=== PATIENT | male | born 1940 | race Caucasian/White ===

== ENCOUNTER 2016-11-03 06:23 | Emergency (ER) | payer OTHER, MEDICARE ==
[2016-11-03 06:55] VITALS: RESP 16
--- NOTE | 2016-11-03 07:08 | EDPHY ---
H & P Stated Complaint: L sided abd pain Time Seen by Provider: 11/03/16 07:03 HPI/ROS: CHIEF COMPLAINT: Left-sided abdominal pain. HISTORY OF PRESENT ILLNESS: The patient is a 76-year-old male who presents with left-sided abdominal pain for the last 6 hours. The pain has been worsening slightly since onset and is described as sharp. Lying on his side alleviates the pain and standing up worsens it. The pain intermittently radiates to his left flank and left testicle. He admits associated nausea. Denies vomiting, urinary symptoms, recent cold symptoms. He has a history of right-sided epididymitis and reports this feels similar but his epididymitis did not involve abdominal pain. He has no personal history of kidney stones or diverticulitis but his father did have a kidney stone. REVIEW OF SYSTEMS: Aside from elements discussed in the HPI, a comprehensive 10-point review of systems was reviewed and is negative. PAST MEDICAL HISTORY: Diabetes, hypertension, prostate cancer. SOCIAL HISTORY: Here with . VITAL SIGNS: Reviewed by me GENERAL: Well-developed, well-nourished, resting comfortably in no respiratory distress. HEENT: Atraumatic. Eyes: No icterus, no injection. Mouth: moist mucous membranes. No erythema or lesions. Neck: supple with no adenopathy. LUNGS: Clear to auscultation bilaterally, no wheezes, rhonchi or rales. CARDIAC: Regular rate and rhythm, no rubs, murmurs or gallops. ABDOMEN: Nontender. Soft, nondistended, bowel sounds normal. MALE : Mild left testicle tenderness, no swelling. BACK: Lateral left flank tenderness. No CVA tenderness. EXTREMITIES: No trauma. No edema. Range of motion is normal throughout. NEURO: Alert and oriented, grossly nonfocal. SKIN: Warm and dry, no rash. PSYCHIATRIC: Normal mentation, no agitation. Portions of this note were transcribed by a medical device sales. I personally performed a history, physical exam, medical decision making, and confirmed accuracy of information the transcribed note. Source: Patient Exam Limitations: No limitations - Personal History Current Tetanus Diphtheria and Acellular Pertussis (TDAP): Yes - Medical/Surgical History Hx Asthma: No Hx Chronic Respiratory Disease: No Hx Diabetes: Yes Hx Cardiac Disease: No Hx Renal Disease: No Hx Cirrhosis: No Hx Alcoholism: No Hx HIV/AIDS: No Hx Splenectomy or Spleen Trauma: No Other PMH: DM, HTN, - Social History Smoking Status: Never smoked Constitutional: Initial Vital Signs Temperature (C) 36.6 C 11/03/16 06:54 Heart Rate 66 11/03/16 06:54 Respiratory Rate 16 11/03/16 06:54 Blood Pressure 162/82 H 11/03/16 06:54 O2 Sat (%) 94 11/03/16 06:54 O2 Delivery Mode Room Air O2 (L/minute) 2 Allergies/Adverse Reactions: levofloxacin [From Levaquin] Allergy (Severe, Verified 05/05/13 15:04) JOINT PAIN SEVERE amoxicillin [Amoxicillin] Allergy (Intermediate, Verified 05/05/13 15:04) DIZZY ENVIRONMENTAL Allergy (Severe, Uncoded 05/05/13 15:04) SEVERE NASAL CONGESTION/ITCHY EYES Home Medications: Medication Instructions Recorded Amlodipine Besylate 11/03/16 HCTZ (*) 11/03/16 Tamsulosin HCl [Flomax] 0.4 mg PO DAILY #7 cap 11/03/16 Valsartan 11/03/16 metFORMIN SR 11/03/16 oxyCODONE/APAP 5/325 [Percocet 1 tab PO QID PRN #20 tab 11/03/16 5/325 (*)] Medical Decision Making - Diagnostics Imaging: Study: CT of the abdomen. Results: 1. Mild to moderate left hydroureteronephrosis, secondary to 4 x 4 x 6 mm left ureterolith at the caudal L4 level. 2. Sequela of old granulomatous disease in the left lower lobe. 3. Sequela of prior prostate gland brachii therapy. The study was read by the radiologist, Dr. Hoover. I viewed the images myself on the PACS system. ED Course/Re-evaluation: An IV was established and labs ordered. 1L IV Saline administered for hydration , 75mcg IV Fentanyl for pain, 4mg IV Zofran for nausea. 76-year-old gentleman presenting with 6 hours of left-sided abdominal pain. No significant associated symptoms. Patient also has some discomfort in his left testicle and states that he has had epididymitis in the past. UA shows 5-10 RBCs. Abdomen/pelvis CT without IV contrast ordered to rule out kidney stone. 0910: CT per Dr. Hoover shows 4x4x6 left kidney stone with moderate hydronephrosis. Patient is improving with fluids as well as pain meds. He received Flomax in the emergency department. I discussed the CT scan results with the patient and his . Patient will be discharged to follow up with Urology. I believe the patient has mild testicular pain is more related to referred kidney stone discomfort. Patient has had levofloxacin and other fluoroquinolones antibiotics in the past and has developed knee pain and tendon issues. For this reason I will not presumptively cover him with levofloxacin. Differential Diagnosis: After obtaining the patient's history and performing an examination, differential diagnosis considered included but was not limited to kidney stones , diverticulitis, epididymitis, urinary tract infection, pyelonephritis, and other causes. - Data Points Laboratory Results: Laboratory Results 11/03/16 07:00 11/03/16 07:00 11/03/16 11/03/16 08:20 07:00 WBC 6.91 10^3/uL (3.80-9.50) RBC 5.06 10^6/uL (4.40-6.38) Hgb 16.2 g/dL (13.7-17.5) Hct 46.6 % (40.0-51.0) MCV 92.1 fL (81.5-99.8) MCH 32.0 pg (27.9-34.1) MCHC 34.8 g/dL (32.4-36.7) RDW 12.8 % (11.5-15.2) Plt Count 160 10^3/uL (150-400) MPV 12.2 H fL (8.7-11.7) Neut % (Auto) 76.8 H % (39.3-74.2) Lymph % (Auto) 14.6 L % (15.0-45.0) Fleming % (Auto) 6.9 % (4.5-13.0) Eos % (Auto) 1.0 % (0.6-7.6) Baso % (Auto) 0.3 % (0.3-1.7) Nucleat RBC Rel Count 0.0 % (0.0-0.2) Absolute Neuts (auto) 5.30 10^3/uL (1.70-6.50) Absolute Lymphs (auto) 1.01 10^3/uL (1.00-3.00) Absolute Monos (auto) 0.48 10^3/uL (0.30-0.80) Absolute Eos (auto) 0.07 10^3/uL (0.03-0.40) Absolute Basos (auto) 0.02 10^3/uL (0.02-0.10) Absolute Nucleated RBC 0.00 10^3/uL (0-0.01) Immature Gran % 0.4 % (0.0-1.1) Immature Gran # 0.03 10^3/uL (0.00-0.10) Sodium 141 mEq/L (134-144) Potassium 4.0 mEq/L (3.5-5.2) Chloride 103 mEq/L (97-110) Carbon Dioxide 25 mEq/l (22-31) Anion Gap 13 mEq/L (8-16) BUN 27 H mg/dL (7-23) Creatinine 1.2 mg/dL (0.7-1.3) Estimated GFR 59 Glucose 168 H mg/dL (70-100) Calcium 9.3 mg/dL (8.5-10.4) Total Bilirubin 0.9 mg/dL (0.1-1.4) Conjugated Bilirubin 0.5 mg/dL (0.0-0.5) Unconjugated Bilirubin 0.4 mg/dL (0.0-1.1) AST 27 IU/L (17-59) ALT 39 IU/L (21-72) Alkaline Phosphatase 92 IU/L (38-126) Total Protein 7.6 g/dL (6.3-8.2) Albumin 4.5 g/dL (3.5-5.0) Lipase 183.0 IU/L (23-300) Urine Color YELLOW Urine Appearance CLEAR Urine pH 6.0 (5.0-7.5) Ur Specific [place] 1.014 (1.002-1.030) Urine Protein NEGATIVE (NEGATIVE) Urine Ketones TRACE H (NEGATIVE) Urine Blood 1+ H (NEGATIVE) Urine Nitrate NEGATIVE (NEGATIVE) Urine Bilirubin NEGATIVE (NEGATIVE) Urine Urobilinogen NEGATIVE EU (0.2-1.0) Ur Leukocyte Esterase NEGATIVE (NEGATIVE) Urine RBC 5-10 H /hpf (0-3) Urine WBC 1-3 /hpf (0-3) Ur Epithelial Cells TRACE /lpf (NONE-1+) Urine Glucose NEGATIVE (NEGATIVE) Medications Given: Discontinued Medications Fentanyl (Sublimaze) 75 mcg IVP EDNOW ONE Stop: 11/03/16 07:13 Last Admin: 11/03/16 08:58 Dose: 75 mcg Hydromorphone HCl (Dilaudid) 1 mg IVP EDNOW ONE Stop: 11/03/16 09:24 Last Admin: 11/03/16 09:34 Dose: 1 mg Sodium Chloride (Ns) 1,000 mls @ 0 mls/hr IV ONCE ONE PRN Reason: Wide Open Stop: 11/03/16 07:13 Last Admin: 11/03/16 08:59 Dose: 1,000 mls Ketorolac Tromethamine (Toradol) 30 mg IVP EDNOW ONE Stop: 11/03/16 09:20 Last Admin: 11/03/16 09:33 Dose: 30 mg Ondansetron HCl (Zofran) 4 mg IVP EDNOW ONE Stop: 11/03/16 07:14 Last Admin: 11/03/16 08:59 Dose: 4 mg Tamsulosin HCl (Flomax) 0.4 mg PO EDNOW ONE Stop: 11/03/16 09:19 Last Admin: 11/03/16 09:34 Dose: 0.4 mg Departure - Departure Disposition: Home, Routine, Self-Care Clinical Impression: Kidney stone on left side Condition: Good Instructions: Kidney Stones (ED) Additional Instructions: Take Percocet as needed for severe pain. Use Zofran as needed for nausea. Take ibuprofen 600 mg every 6-8 hours as needed for moderate pain. This will also help with inflammation. Take Flomax as directed. Call Dr. Gilbert, urology, tomorrow to set up a follow up appointment. Strain urine. Return to the emergency department if you have worsening pain, fevers, persistent vomiting, or other concerns. Referrals: Jenny Bennett MD [Primary Care Provider] - As per Instructions Saroj Gilbert MD [Medical Doctor] - As per Instructions Prescriptions: Tamsulosin HCl [Flomax] 0.4 mg PO DAILY #7 cap oxyCODONE/APAP 5/325 [Percocet 5/325 (*)] 1 tab PO QID PRN #20 tab PRN Reason: Pain Report Scribed for: Bushra Lucas Report Scribed by: Leroy Pepper Date of Report: 11/03/16 Time of Report: 07:08
[2016-11-03] MEDS ORDERED: NS 1,000 ML IV ONE (07:12)
[2016-11-03] MEDS ORDERED: fentaNYL 100 MCG/2 ML INJ IVP ONE (07:12)
[2016-11-03] MEDS ORDERED: ONDANSETRON 4 MG/2 ML VIAL IVP ONE (07:13)
[2016-11-03 07:17] LABS: % IMMATURE GRANULYOCYTES 0.4 % (0.0-1.1); ABSOLUTE IMMATURE GRANULOCYTES 0.03 10^3/uL (0.00-0.10); ADD DIFF? NO; ADD MORPH? NO; ADD SCAN? NO; ATYPICAL LYMPHOCYTE FLAG 0 (0-99); FRAGMENT RBC FLAG 0 (0-99); HEMATOCRIT 46.6 % (40.0-51.0); HEMOGLOBIN 16.2 g/dL (13.7-17.5); LEFT SHIFT FLG 0 (0-99); LIPEMIA HEMOLYSIS FLAG 90 (0-99); MEAN CELL HEMOGLOBIN CONCENTR. 34.8 g/dL (32.4-36.7); MEAN CELL VOLUME 92.1 fL (81.5-99.8); MEAN PLATELET VOLUME 12.2 fL (8.7-11.7); PLATELET CLUMPS FLAG 0 (0-99); PLATELET COUNT 160 10^3/uL (150-400); RED BLOOD CELL COUNT 5.06 10^6/uL (4.40-6.38); RED CELL DISTRIBUTION WIDTH 12.8 % (11.5-15.2)
[2016-11-03] MEDS ORDERED: ONDANSETRON 4 MG/2 ML VIAL ONE (07:23)
[2016-11-03 07:24] LABS: ALANINE AMINOTRANSFERASE 39 IU/L (21-72); ALBUMIN 4.5 g/dL (3.5-5.0); ALKALINE PHOSPHATASE 92 IU/L (38-126); ANION GAP 13 mEq/L (8-16); ASPARTATE AMINOTRANSFERASE 27 IU/L (17-59); BILIRUBIN,TOTAL 0.9 mg/dL (0.1-1.4); BILIRUBIN-CONJUGATED 0.5 mg/dL (0.0-0.5); BILIRUBIN-UNCONJUGATED 0.4 mg/dL (0.0-1.1); CALCIUM 9.3 mg/dL (8.5-10.4); CARBON DIOXIDE 25 mEq/l (22-31); CHLORIDE 103 mEq/L (97-110); CREATININE 1.2 mg/dL (0.7-1.3); GLOMERULAR FILTRATION RATE 59; GLUCOSE 168 mg/dL (70-100); SODIUM 141 mEq/L (134-144); TOTAL PROTEIN 7.6 g/dL (6.3-8.2)
[2016-11-03 08:36] LABS: COLOR YELLOW; LEUKOCYTE ESTERASE,URINE NEGATIVE (NEGATIVE); NITRITE,URINE NEGATIVE (NEGATIVE)
[2016-11-03] MEDS ORDERED: TAMSULOSIN HCL 0.4 MG CAP PO ONE (09:18)
--- NOTE | 2016-11-03 09:18 | CT ---
Unenhanced CT Scan of the Abdomen And Pelvis (Renal Stone Protocol) Clinical History: 76-year-old male with acute onset left groin pain and testicular pain ongoing for 8 hours. The patient has a history of prostate cancer with seed implants. Evaluate for nephrolithiasis or obstructive uropathy. Technique: Neither oral, retrograde rectal, nor IV contrast was administered. A multidetector unenhan gilda helical CT scan was obtained from lung bases inferiorly through the proximal femora, with images reformatted at 5.00 and 1.50 mm increments, and reviewed at a variety of window and level settings. P arasagittal and paracoronal reconstructed images were reviewed on the workstation. DFOV is 50 cm. A d ose reduction protocol was used. Comparison Studies: CT scan of the pelvis, dated May 19, 2013, and CT imaging of the abdomen and pe lvis dated December 29, 2012. Findings: Unenhanced CT Scan of the Abdomen: There is some mild bibasilar dependent changes and evidence of a calcified granuloma in the posterior left lower lobe. There is no pleural or pericardial effusion. A small calcified granuloma is seen near the left caudal hilum. There is RCA coronary artery calcificat ion. There are no hepatic, pancreatic, splenic, adrenal, or renal calculi; however, there is a mild-t o-moderate degree of left hydronephrosis, secondary to a 4 x 4 x 6 mm calculus in the left ureter at the caudal L4 level. There is some associated periureteral inflammation. There is moderate subcutaneo us and centripetal obesity. The CT appearance of small and large bowel is grossly unremarkable. The a bdominal aorta and IVC are normal in caliber. 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 There is no osteoblastic lesion. Unenhanced CT Scan of the Pelvis: The urinary bladder is moderately distended. There are no urinary bladder calculi. There are no more distal ureteroliths. Brachytherapy seeds are seen at the prostate bed. There is no adenopathy. There are some phleboliths in the caudal right hemipelvis. A few scatter ed sigmoid colon diverticula are seen. There is subchondral degenerative change associated with the S I joints. A few scattered bone islands are once again identified, similar in distribution to the 2013 study. Impression: 1. [id number] left hydroureteronephrosis, secondary to 4 x 4 x 6 mm left ureterolith at the cau gilbert L4 level. 2. Sequela of old granulomatous disease in the left lower lobe. 3. Sequela of prior prostate gland brachii therapy. Results were discussed with Dr. Bushra Lucas. Attention: This CT examination is specifically designed to evaluate patients who are clinically susp ected of having acute obstructive uropathy. This examination does not use radiographic contrast, and as such, provides only a limited evaluation of the abdomen, pelvis, and retroperitoneum. If there i s further clinical suspicion for pathological conditions other than obstructive uropathy, a complete CT evaluation of the abdomen and pelvis utilizing intravenous, oral, and rectal contrast should be co nsidered. A test result has been communicated to a licensed care provider and documented in [employer], 9:11:39 AM , 11/03/2016, [employer] Message ID [id number].
[2016-11-03] MEDS ORDERED: KETOROLAC 30 MG/1 ML SDV IVP ONE (09:19)
[2016-11-03] MEDS ORDERED: HYDROmorphONE/DILAUDID 1 MG/ML SYR ONE (09:19)
[2016-11-03] MEDS ORDERED: HYDROmorphONE/DILAUDID 1 MG/ML SYR IVP ONE (09:23)
[2016-11-03 10:06] VITALS: BP 128/94; PULSE 88; TEMP 209.5; O2SAT 93
--- NOTE | 2016-11-03 10:46 | CPEKG ---
Heart Rate: 72 RR Interval: 833 P-R Interval: 196 QRSD Interval: 108 QT Interval: 400 QTC Interval: 438 P [place]: 59 QRS [place]: 86 T Wave [place]: 216 EKG Severity - ABNORMAL ECG - EKG Impression: SINUS RHYTHM EKG Impression: NONSPECIFIC T ABNORMALITIES, DIFFUSE LEADS Electronically Signed By: Bushra Lucas 03-Nov-2016 15:48:02
== END 2016-11-03 10:04 | disposition home or self-care (01) ==
DX: N20.0 Calculus of kidney (principal); E11.9 Type 2 diabetes mellitus without complications; I10 Essential (primary) hypertension; Z85.46 Personal history of malignant neoplasm of prostate
CPT/HCPCS: 74176; 93005; 96361; 96374; 96375; 99285; J1170; J1885; J2405; J3010

== ENCOUNTER → 2016-11-05 | Outpatient (CLI) | payer OTHER, MEDICARE ==
--- NOTE | 2016-11-05 22:59 | DX ---
Left Hip, Two Views - November 05, 2016 Indication: Pain following fall several months ago. Comparison: CT pelvis dated May 19, 2013. Technique: AP and frog-leg lateral views. Findings: The normally mineralized bones are anatomically aligned. No acute fracture or sclerotic bon e lesion. Minimal symmetric osteoarthritis of bilateral hips is similar to 2013. Moderate degenerativ e disk and facet arthropathy are present at the L5-S1 level. The sacroiliac joints are partially anky losed. The distribution of the brachytherapy seeds embedded in the prostate gland is unchanged. Impression: 1. No acute fracture or bone lesion. 2. Symmetric mild hip osteoarthritis. 3. Ankylosis of bilateral sacroiliac joints.
--- NOTE | 2016-11-06 06:37 | DX ---
Bilateral Knees, Six Views Indication: Bilateral knee pain for several months. Comparison: None. Findings: Right: Mild genu varus configuration due to complete medial tibiofemoral joint space loss and bone ar ticulating with bone. The lateral tibiofemoral joint space is minimally open. Small marginal osteophy obed emanate off the medial tibiofemoral joint line. The patella is translated laterally 4 mm and ther e is severe narrowing of the lateral patellofemoral joint space. No effusion. Small osteophytes emana te off the superior and inferior aspect of the patella. Enthesophytes emanate off the superior and in ferior aspect of the patella and tibial tuberosity. Left: Mild genu varus configuration due to marked medial tibiofemoral joint space loss. Osteophytes e manate off the medial and lateral joint line. The patella is translated laterally. Moderate narrowing of the lateral patellofemoral joint space. No suprapatellar effusion. Dystrophic calcification versu s osteophyte emanates off the superior pole of the patella. Enthesophytes emanate off the superior an d inferior pole of the patella and tibial tuberosity. Impression: Moderate to severe symmetric osteoarthritis principally affecting the medial tibiofemoral compartments and lateral patellofemoral compartments.
== END ==
LOC: FIMAGING 13:56
PROVIDERS: ATTEND Family Medicine
DX: M16.12 Unilateral primary osteoarthritis, left hip (principal); M17.0 Bilateral primary osteoarthritis of knee

== ENCOUNTER → 2016-11-15 | Outpatient (CLI) | payer OTHER, MEDICARE ==
--- NOTE | 2016-11-15 17:28 | DX ---
Abdomen - Single View November 15, 2016 Indication: Generalized abdominal pain. History of kidney stones. Comparison: Left hip series dated November 05, 2016, and CT abdomen and pelvis dated November 03, 2016. Findings: The left ureteral calculus has migrated downstream and is no longer evident. The calculus h as either been passed or is now obscured by overlying sacrum. Constipation and brachytherapy seeds in the prostate gland are unchanged. Lung bases are clear. Impression: Left ureteral calculus is not visible (either passed or migrated downstream and now obscu red by overlying bone).
== END ==
LOC: FLAB 12:43
PROVIDERS: ATTEND Urology
DX: K59.00 Constipation, unspecified (principal); Z87.442 Personal history of urinary calculi

== ENCOUNTER → 2016-11-20 | Outpatient (CLI) | payer OTHER, MEDICARE ==
--- NOTE | 2016-11-20 18:43 | DX ---
KUB, 3 views. November 20, 2016. HISTORY: Follow-up left ureteral calculus. COMPARISON STUDY: November 15, 2016. FINDINGS: No calculi are identified along the course of the ureters or the kidneys bilaterally. The p atient's small left ureteral calculus may have passed or may be radiographically occult. There is a prominent amount of retained stool throughout the colon. Radiation therapy seeds are prese nt within the prostate. IMPRESSION: 1. Nonvisualization of left ureteral calculus, passage of stone or obscured by bowel gas and soft tis [place].
== END ==
LOC: FIMAGING 13:35
PROVIDERS: ATTEND Urology
DX: R10.84 Generalized abdominal pain (principal); Z87.442 Personal history of urinary calculi